=== PATIENT | female | born 1985 | race Caucasian/White ===

== ENCOUNTER 2019-02-26 08:30 | Inpatient (IN) | payer OTHER ==
[2019-02-26] MEDS ORDERED: Misoprostol 25 MCG (1/4 of 100 MCG) Tab ONE ×2 (19:22→23:22)
[2019-02-26] MEDS ORDERED: Ondansetron 4 MG/2 ML SDV IVPUSH PRN (19:45)
[2019-02-26] MEDS ORDERED: Misoprostol 100 MCG Tab VAG PRN (19:45)
[2019-02-26] MEDS ORDERED: Sodium Chloride 0.9% 10 ML Syringe FLUSH PRN (19:45)
[2019-02-26] MEDS ORDERED: Oxytocin/Lactated Ringers 10 UNIT/1,000 ML BAG IV SCH ×2 (19:45)
[2019-02-26] MEDS ORDERED: Nalbuphine 20 MG/ML 1 ML Syringe IVPUSH PRN (19:45)
--- NOTE | 2019-02-26 19:45 | PCM.LDHP ---
L&D History of Present Illness - General Date of Service: 02/26/19 Admit Problem/Dx: Admission Diagnosis/Problem Admission Diagnosis/Problem Source of Information: Patient History Limitations: Reports: No Limitations - History of Present Illness Introduction:: Patient is a 33 y/o at 40 2/7 wks who presents for IOL for dates. Doing well today. Has had some intermittent contractions, but nothing that is patterned or persists. No concerns for LOF. 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 (Approximate): Dermatologic History: Reports: Psoriasis - Past Surgical History HEENT Surgical History: Reports: KIRSTIEIK Social & Family History - Tobacco Use Smoking Status *Q: Never Smoker - Alcohol Use Alcohol Use History: No - Recreational Drug Use Recreational Drug Use: No H&P Review of Systems - Review of Systems: Review Of Systems: See Below General: Reports: No Symptoms Pulmonary: Reports: No Symptoms Cardiovascular: Reports: No Symptoms Gastrointestinal: Reports: No Symptoms Genitourinary: Reports: No Symptoms Musculoskeletal: Reports: No Symptoms Psychiatric: Reports: No Symptoms Neurological: Reports: No Symptoms L&D Exam - Exam Exam: See Below - OB Specific Contraction Intensity: Irritability Movement: Active Heart Tones: Present Heart Tones per Min: 125 Heart Rate (FHR) Variability: Moderate (6-25 bmp) Presentation: Vertex - Peres Score Peres Score Cervix Position: Posterior Peres Score Consistency: Soft Peres Score Effacement: 51-70% Peres Score Dilation: 1-2 cm Peres Score Infant's Station: -2 Peres Score Total: 6 - Exam General: Alert, Oriented, Cooperative Lungs: Clear to Auscultation, Normal Respiratory Effort Cardiovascular: Regular Rate, Regular Rhythm GI/Abdominal Exam: Soft, Non-Tender Genitourinary: Normal external exam Extremities: Normal Inspection Skin: Warm, Dry, Intact - Problem List (1) 40 weeks gestation of SNOMED Code(s): 48319918 ICD Code: Z3A.40 - 40 WEEKS GESTATION OF Status: Acute Current Visit: Yes (2) GBS (group B Streptococcus carrier), +RV culture, currently SNOMED Code(s): 0172692467383, 548275715, 3977231988014 ICD Code: O99.820 - STREPTOCOCCUS B CARRIER STATE COMPLICATING Status: Acute Current Visit: Yes Problem List Initiated/Reviewed/Updated: Yes Assessment/Plan Comment:: 33 y/o at 40 2/7 wks gestation who presents for IOL for dates * Labs on admission * GBS positive, will eventually start PCN when more active * Kamara bulb placed and Cytotec inserted. Eventually will switch to pitocin and AROM * Pain management per patient preference * Anticipate
[2019-02-27] MEDS: Lactated Ringers 1,000 ML IV SCH ×2 (00:38→05:47)
[2019-02-27] MEDS ORDERED: Penicillin G Potassium 5 MILLUNITS in Sodium Chloride 0.9% 100 ML IV ONE (03:00)
[2019-02-27] MEDS ORDERED: Penicillin G Potassium 2.5 MILLUNITS in Sodium Chloride 0.9% 100 ML IV SCH (07:00)
[2019-02-27] MEDS ORDERED: fentaNYL 100 MCG/2 ML SDV EPIDUR PRN (07:14)
[2019-02-27] MEDS ORDERED: fentaNYL/Bupivacaine-NS 2 MCG/ML-0.125%/PF 100 ML Bag EPIDUR PRN (07:14)
[2019-02-27] MEDS ORDERED: Ondansetron 4 MG/2 ML SDV IVPUSH PRN ×2 (07:14→08:47)
[2019-02-27] MEDS ORDERED: ePHEDrine 50 MG/ML SDV IVPUSH PRN ×3 (07:14→10:44)
[2019-02-27] MEDS ORDERED: Phenylephrine 1 MG in Sodium Chloride 0.9% 10 ML IV SCH ×2 (07:15→09:00)
--- NOTE | 2019-02-27 07:18 | PCM.PREANE ---
Preanesthetic Assessment - Anesthesia/Transfusion/Family Hx Anesthesia History: Prior Anesthesia Without Reaction Family History of Anesthesia Reaction: No Transfusion History: No Prior Transfusion(s) Intubation History: Unknown - Review of Systems General: No Symptoms Pulmonary: No Symptoms Cardiovascular: No Symptoms Gastrointestinal: No Symptoms Neurological: No Symptoms (History of arthritis and psoriasis) Other: Reports: None - Physical Assessment NPO Status Date: 02/26/19 NPO Status Time: 17:00 Pulse: 78 O2 Sat by Pulse Oximetry: 97 Respiratory Rate: 16 Blood Pressure: 126/76 Temperature: 37.2 C Vital Signs: Last Vital Signs Temp 37.2 C 02/26/19 19:45 Pulse 78 02/26/19 19:45 Resp 16 02/26/19 19:45 BP 126/76 02/26/19 19:45 Pulse Ox 97 02/26/19 19:45 Height: 1.68 m Weight: 94.801 kg ASA Class: 2 Mental Status: Alert & Oriented x3 Airway Class: Mallampati = 2 Dentition: Reports: Normal Dentition, Caries Thyro-Mental Finger Breadths: 3 Mouth Opening Finger Breadths: 3 ROM/Head Extension: Full Lungs: Clear to Auscultation, Normal Respiratory Effort Cardiovascular: Regular Rate, Regular Rhythm, No Murmurs - Lab Values: Laboratory Last Values WBC 14.39 K/mm3 (3.98-10.04) H 02/26/19 20:00 RBC 3.80 M/mm3 (3.98-5.22) L 02/26/19 20:00 Hgb 12.1 gm/L (11.2-15.7) 02/26/19 20:00 Hct 36.5 % (34.1-44.9) 02/26/19 20:00 MCV 96.1 fl (79.4-94.8) H 02/26/19 20:00 MCH 31.8 pg (25.6-32.2) 02/26/19 20:00 MCHC 33.2 g/dl (32.2-35.5) 02/26/19 20:00 RDW Std Deviation 49.3 fL (36.4-46.3) H 02/26/19 20:00 Plt Count 281 K/mm3 (182-369) 02/26/19 20:00 MPV 10.3 fl (9.4-12.3) 02/26/19 20:00 RPR Non-reactive (NONREACTIVE) 02/26/19 20:00 Blood Type O POSITIVE 02/26/19 20:00 Gel Antibody Screen Negative 02/26/19 20:00 Above labs reviewed and noted and within acceptable ranges to proceed with scheduled procedure. 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: Dermatologic History: Reports: Psoriasis - Past Surgical History HEENT Surgical History: Reports: LASIK - SUBSTANCE USE Smoking Status *Q: Never Smoker Tobacco Use Within Last Twelve Months: No Second Hand Smoke Exposure: No Recreational Drug Use History: No - CURRENT (IN HOUSE) MEDS Current Meds: Current Medications Ephedrine Sulfate (Ephedrine Sulfate) 5 mg IVPUSH ASDIRECTED PRN PRN Reason: Hypotension Fentanyl (Sublimaze) 100 mcg EPIDUR Q3H PRN PRN Reason: Pain Fentanyl/Bupivacaine HCl (Ahtgmgzc-Jsccp-Oh 2 Mcg/Ml-0.125%) 100 ml EPIDUR ASDIRECTED PRN PRN Reason: Pain Lactated Ringer's (Ringers, Lactated) 1,000 mls @ 40 mls/hr IV ASDIRECTED MAURY Last Admin: 02/27/19 05:47 Dose: 40 mls/hr Oxytocin/Lactated Ringer's (Pitocin In Lr 10 Units/1,000 Ml) 10 unit in 1,000 mls @ 12 mls/hr IV TITRATE MAURY; Protocol Oxytocin/Lactated Ringer's (Pitocin In Lr 10 Units/1,000 Ml) 10 unit in 1,000 mls @ 500 mls/hr IV .CONTINUOUS MAURY Penicillin G Potassium 2.5 (millunits/ Sodium Chloride) 100 mls @ 55 mls/hr IV Q4H MAURY Last Admin: 02/27/19 05:43 Dose: 55 mls/hr Phenylephrine HCl 1 mg/ Sodium (Chloride) 10.1 mls @ 1 mls/sec IV TITRATE MAURY; Protocol Misoprostol (Cytotec) 25 mcg VAG Q4H PRN PRN Reason: cervical ripening Nalbuphine HCl (Nubain) 10 mg IVPUSH Q2H PRN PRN Reason: pain Last Admin: 02/27/19 05:24 Dose: 10 mg Ondansetron HCl (Zofran) 4 mg IVPUSH Q4H PRN PRN Reason: Nausea/Vomiting Last Admin: 02/27/19 02:42 Dose: 4 mg Ondansetron HCl (Zofran) 4 mg IVPUSH ONETIME PRN PRN Reason: Nausea/Vomiting Sodium Chloride (Saline Flush) 10 ml FLUSH ASDIRECTED PRN PRN Reason: Keep Vein Open Discontinued Medications Penicillin G Potassium 5 (millunits/ Sodium Chloride) 100 mls @ 55 mls/hr IV ONETIME ONE Stop: 02/27/19 04:49 Last Admin: 02/27/19 01:45 Dose: 55 mls/hr Misoprostol (Cytotec) Confirm Administered Dose 25 mcg .ROUTE .STK-MED ONE Stop: 02/26/19 19:23 Last Admin: 02/26/19 21:08 Dose: 25 mcg Misoprostol (Cytotec) Confirm Administered Dose 25 mcg .ROUTE .STK-MED ONE Stop: 02/26/19 23:23 Last Admin: 02/26/19 23:44 Dose: Not Given
[2019-02-27] MEDS ORDERED: Lidocaine 1% 50 ML MDV INFILT ONE (07:29)
[2019-02-27] MEDS ORDERED: Morphine PF 10 MG/10 ML SDV ONE (08:19)
[2019-02-27] MEDS ORDERED: Ondansetron 4 MG/2 ML SDV ONE (08:33)
[2019-02-27] MEDS ORDERED: Oxytocin 10 Units/1 ML SDV ONE ×2 (08:33→08:52)
[2019-02-27] MEDS ORDERED: Lactated Ringers 2,000 ML ONE (08:33)
[2019-02-27] MEDS ORDERED: Ketorolac 30 MG/ML SDV ONE (08:33)
[2019-02-27] MEDS ORDERED: ceFAZolin 1 GM Vial ONE ×2 (08:33)
[2019-02-27] MEDS ORDERED: HYDROmorphone 0.5 MG/0.5 ML Syringe IVPUSH PRN (08:47)
[2019-02-27] MEDS ORDERED: diphenhydrAMINE 50 MG/ML SDV IVPUSH PRN ×2 (08:47→10:44)
[2019-02-27] MEDS ORDERED: fentaNYL 100 MCG/2 ML SDV IVPUSH PRN (08:47)
--- NOTE | 2019-02-27 09:17 | PCM.POSTAN ---
POST ANESTHESIA ASSESSMENT - MENTAL STATUS Mental Status: Alert - VITAL SIGNS Pulse Rate: 81 SaO2: 96 Resp Rate: 27 Blood Pressure: 102/67 Temperature: 36.7 C - RESPIRATORY Respiratory Status: Respiratory Rate WNL, Airway Patent, O2 Saturation Stable - CARDIOVASCULAR CV Status: Pulse Rate WNL, Blood Pressure Stable - GASTROINTESTINAL GI Status: No Symptoms - POST OP HYDRATION Hydration Status: Adequate & Stable
--- NOTE | 2019-02-27 09:20 | PCM.OPNOTE ---
- General Post-Op/Procedure Note Date of Surgery/Procedure: 02/27/19 Operative Procedure(s): Primary low transverse Findings: Baby Boy in a vertex presentation. Weight of 7 lbs 15 oz. APGARS of 9 & 9. Normal appearance of the uterus, fallopian tubes, and ovaries. Pre Op Diagnosis: 40 3/7 wks gestation. Non reassuring status Post-Op Diagnosis: Same Anesthesia Technique: Spinal Primary Surgeon: Tracey Sánchez Secondary Surgeon: Vi Harris Anesthesia Provider: April Velez Reason Medical Care Administrator Was Necessary: Speed, safety of procedure Pathology: Cord gas and cord blood collected. Placenta discarded Fluid Replacement, Intraop: 1,100 Output, Urine Amount: 100 EBL in mLs: 500 Complications: None Condition: Good Free Text/Narrative:: The risks, benefits, indications, potential complications, and alternatives were explained to the patient and informed consent obtained. After induction of anesthesia, the patient was placed in a supine position and then draped and prepped in the usual sterile manner. A Pfannenstiel incision was made and carried down through the subcutaneous tissue to the fascia. Fascial incision was made and extended transversely. The fascia was from the underlying rectus tissue superiorly and inferiorly. The peritoneum was identified and entered. Peritoneal incision was extended longitudinally. The utero-vesical peritoneal reflection was incised transversely and the bladder flap was bluntly freed from the lower uterine segment. A low transverse uterine incision was made sharply with a scalpel and extended bluntly in a cephalocaudad direction. A baby boy was delivered from a vertex presentation with APGARS as above. After the umbilical cord was clamped and cut a segment was obtained for a cord gas. Cord blood was then obtained for evaluation. The placenta was removed intact and appeared normal. The uterus was exteriorized and cleared of clots. The uterine outline, tubes and ovaries appeared normal. The uterine incision was closed with running locked sutures of 0 Vicryl. Hemostasis was obtained with a second imbricating layer of 0 vicryl. Slight oozing noted at right aspect of hysterotomy from abrasion of muscle. Curly seal placed along the incision with good result. The uterus was then placed back into the abdomen. The infracolic gutters were cleared of blood clots. The fascia was then reapproximated with running sutures of 0 Vicryl. The sucutaneous tissue was irrigated with sterile warm normal saline, hemostasis obtained with cautery. This layer was closed with a running 0 vicryl suture as well The skin was reapproximated with running Subcuticular 4-0 monocryl sutures. The incision was then sealed with Dermabond. Instrument, sponge, and needle counts were correct prior the abdominal closure and at the conclusion of the case.
[2019-02-27] MEDS ORDERED: Docusate Sodium 100 MG Cap PO PRN (10:44)
[2019-02-27] MEDS ORDERED: Lanolin 100% Cream 7 GM Tube TOP PRN (10:44)
[2019-02-27] MEDS ORDERED: Dextrose 5%-Lactated Ringers 1,000 ML IV SCH (10:44)
[2019-02-27] MEDS ORDERED: Ondansetron 4 MG/2 ML SDV IV PRN (10:44)
[2019-02-27] MEDS: Ketorolac 30 MG/ML SDV IVPUSH SCH ×2 (15:05→21:13)
[2019-02-27] MEDS: ceFAZolin 2 GM in Premix Bag 1 BAG IV SCH (16:48)
[2019-02-28] MEDS: ceFAZolin 2 GM in Premix Bag 1 BAG IV SCH ×2 (01:00→08:18)
[2019-02-28] MEDS: Ketorolac 30 MG/ML SDV IVPUSH SCH (03:34)
--- NOTE | 2019-02-28 07:18 | PCM.PNPP ---
- General Info Date of Service: 02/28/19 Functional Status: Reports: Pain Controlled, Tolerating Diet, Ambulating - Review of Systems General: Reports: No Symptoms Pulmonary: Reports: No Symptoms Cardiovascular: Reports: No Symptoms Gastrointestinal: Reports: Abdominal Pain (managed with medications ) Genitourinary: Reports: No Symptoms Musculoskeletal: Reports: No Symptoms - Patient Data Vital Signs - Most Recent: Last Vital Signs Temp 36.9 C 02/28/19 03:38 Pulse 84 02/28/19 06:00 Resp 15 02/28/19 06:00 BP 115/70 02/28/19 03:38 Pulse Ox 98 02/28/19 06:00 Weight - Most Recent: 94.801 kg I&O - Last 24 Hours: Intake & Output 02/27/19 02/28/19 02/28/19 22:59 06:59 14:59 Output Total 555 1000 Balance -555 -1000 Lab Results - Last 24 Hours: Laboratory Results - last 24 hr 02/28/19 Range/Units 05:40 WBC 16.56 H (3.98-10.04) K/mm3 RBC 3.10 L (3.98-5.22) M/mm3 Hgb 9.8 L D (11.2-15.7) gm/L Hct 30.7 L (34.1-44.9) % MCV 99.0 H (79.4-94.8) fl MCH 31.6 (25.6-32.2) pg MCHC 31.9 L (32.2-35.5) g/dl RDW Std Deviation 52.3 H (36.4-46.3) fL Plt Count 231 (182-369) K/mm3 MPV 10.6 (9.4-12.3) fl Med Orders - Current: Current Medications Diphenhydramine HCl (Benadryl) 25 mg IVPUSH Q6H PRN PRN Reason: Itching or Nausea Docusate Sodium (Colace) 100 mg PO Q12H PRN PRN Reason: Constipation Emollient Ointment (Lansinoh Hpa) 0 gm TOP ASDIRECTED PRN PRN Reason: Sore Nipples Ephedrine Sulfate (Ephedrine Sulfate) 5 mg IVPUSH SEECOMMENT PRN PRN Reason: Other Cefazolin Sodium/Dextrose 2 gm (/ Premix) 50 mls @ 100 mls/hr IV Q8H MAURY Last Admin: 02/28/19 01:00 Dose: 100 mls/hr Ibuprofen (Motrin) 600 mg PO Q6H PRN PRN Reason: mild pain or fever Ondansetron HCl (Zofran) 4 mg IV Q8H PRN PRN Reason: Nausea/Vomiting Oxycodone/Acetaminophen (Percocet 325-5 Mg) 2 tab PO Q4H PRN PRN Reason: Pain (moderate 4-6) Discontinued Medications Cefazolin Sodium (Ancef) Confirm Administered Dose 1 gm .ROUTE .STK-MED ONE Stop: 02/27/19 08:34 Cefazolin Sodium (Ancef) Confirm Administered Dose 1 gm .ROUTE .Hyperfair-MED ONE Stop: 02/27/19 08:34 Diphenhydramine HCl (Benadryl) 25 mg IVPUSH Q6H PRN PRN Reason: pruritis Ephedrine Sulfate (Ephedrine Sulfate) 5 mg IVPUSH ASDIRECTED PRN PRN Reason: Hypotension Ephedrine Sulfate (Ephedrine Sulfate) 5 mg IVPUSH ASDIRECTED PRN PRN Reason: Hypotension Fentanyl (Sublimaze) 100 mcg EPIDUR Q3H PRN PRN Reason: Pain Fentanyl (Sublimaze) 50 mcg IVPUSH Q5M PRN PRN Reason: Pain Fentanyl/Bupivacaine HCl (Egrvzczt-Mhgon-Tq 2 Mcg/Ml-0.125%) 100 ml EPIDUR ASDIRECTED PRN PRN Reason: Pain Hydromorphone HCl (Dilaudid) 0.5 mg IVPUSH Q15M PRN PRN Reason: Pain (severe 7-10) Lactated Ringer's (Ringers, Lactated) 1,000 mls @ 40 mls/hr IV ASDIRECTED MAURY Last Admin: 02/27/19 05:47 Dose: 40 mls/hr Oxytocin/Lactated Ringer's (Pitocin In Lr 10 Units/1,000 Ml) 10 unit in 1,000 mls @ 12 mls/hr IV TITRATE MAURY; Protocol Oxytocin/Lactated Ringer's (Pitocin In Lr 10 Units/1,000 Ml) 10 unit in 1,000 mls @ 500 mls/hr IV .CONTINUOUS MAURY Penicillin G Potassium 5 (millunits/ Sodium Chloride) 100 mls @ 55 mls/hr IV ONETIME ONE Stop: 02/27/19 04:49 Last Admin: 02/27/19 01:45 Dose: 55 mls/hr Penicillin G Potassium 2.5 (millunits/ Sodium Chloride) 100 mls @ 55 mls/hr IV Q4H MAURY Last Admin: 02/27/19 05:43 Dose: 55 mls/hr Phenylephrine HCl 1 mg/ Sodium (Chloride) 10.1 mls @ 1 mls/sec IV TITRATE MAURY; Protocol Lactated Ringer's (Ringers, Lactated) Confirm Administered Dose 2,000 mls @ as directed .ROUTE .STK-MED ONE Stop: 02/27/19 08:34 Phenylephrine HCl 1 mg/ Sodium (Chloride) 10.1 mls @ 1 mls/sec IV TITRATE MAURY; Protocol Dextrose/Lactated Ringer's (Dextrose 5%-Lactated Ringers) 1,000 mls @ 125 mls/ hr IV ASDIRECTED MAURY Stop: 02/27/19 18:43 Ketorolac Tromethamine (Toradol) Confirm Administered Dose 30 mg .ROUTE .STK- MED ONE Stop: 02/27/19 08:34 Ketorolac Tromethamine (Toradol) 30 mg IVPUSH Q6H MAURY Stop: 02/28/19 03:01 Last Admin: 02/28/19 03:34 Dose: 30 mg Lidocaine HCl (Xylocaine 1%) 20 ml INFILT ONETIME ONE Stop: 02/27/19 07:30 Misoprostol (Cytotec) Confirm Administered Dose 25 mcg .ROUTE .STK-MED ONE Stop: 02/26/19 19:23 Last Admin: 02/26/19 21:08 Dose: 25 mcg Misoprostol (Cytotec) 25 mcg VAG Q4H PRN PRN Reason: cervical ripening Misoprostol (Cytotec) Confirm Administered Dose 25 mcg .ROUTE .STK-MED ONE Stop: 02/26/19 23:23 Last Admin: 02/26/19 23:44 Dose: Not Given Morphine Sulfate (Duramorph Pf) Confirm Administered Dose 10 mg .ROUTE .STK-MED ONE Stop: 02/27/19 08:20 Nalbuphine HCl (Nubain) 10 mg IVPUSH Q2H PRN PRN Reason: pain Last Admin: 02/27/19 05:24 Dose: 10 mg Ondansetron HCl (Zofran) 4 mg IVPUSH Q4H PRN PRN Reason: Nausea/Vomiting Last Admin: 02/27/19 02:42 Dose: 4 mg Ondansetron HCl (Zofran) 4 mg IVPUSH ONETIME PRN PRN Reason: Nausea/Vomiting Ondansetron HCl (Zofran) Confirm Administered Dose 4 mg .ROUTE .STK-MED ONE Stop: 02/27/19 08:34 Ondansetron HCl (Zofran) 4 mg IVPUSH ONETIME PRN PRN Reason: Nausea/Vomiting Oxytocin (Pitocin) Confirm Administered Dose 10 unit .ROUTE .STK-MED ONE Stop: 02/27/19 08:34 Oxytocin (Pitocin) Confirm Administered Dose 10 unit .ROUTE .STK-MED ONE Stop: 02/27/19 08:53 Sodium Chloride (Saline Flush) 10 ml FLUSH ASDIRECTED PRN PRN Reason: Keep Vein Open - Infant Interaction Disposition, : in Room with Family Infant Interaction: Holding Infant Infant Feeding: Breastfed Infant; Nursed Well Support Person: - Recovery Exam Fundal Tone: Firm Fundal Level: 1 Fingerbreadths Below Umbilicus Fundal Placement: Midline Lochia Amount: Small, Moderate Lochia Color: Rubra/Red Perineum Description: Intact, Minimal Bruising/Swelling Urinary Elimination: Not Voiding - Exam General: Alert, Oriented, Cooperative Lungs: Clear to Auscultation, Normal Respiratory Effort Cardiovascular: Regular Rate, Regular Rhythm GI/Abdominal Exam: Soft, Tender (appropriate post op ) Extremities: Normal Inspection Skin: Warm, Dry, Intact Wound/Incisions: Healing Well, No Drainage - Problem List & Annotations (1) 40 weeks gestation of SNOMED Code(s): 43090369 Code(s): Z3A.40 - 40 WEEKS GESTATION OF Status: Acute Current Visit: Yes (2) GBS (group B Streptococcus carrier), +RV culture, currently SNOMED Code(s): 9556204768729, 392018624, 3513078295410 Code(s): O99.820 - STREPTOCOCCUS B CARRIER STATE COMPLICATING Status: Acute Current Visit: Yes (3) Non-reassuring status SNOMED Code(s): 488470771 Code(s): EAE9290 - Status: Acute Current Visit: Yes (4) S/P primary low transverse SNOMED Code(s): 177854009, 20861106, 604808899, 719417066, 511859280 Code(s): Z98.891 - HISTORY OF UTERINE SCAR FROM PREVIOUS SURGERY Status: Acute Current Visit: Yes - Problem List Review Problem List Initiated/Reviewed/Updated: Yes - My Orders Last 24 Hours: My Active Orders 02/27/19 10:44 Activity as Tolerated [RC] .Routine Antiembolic Devices [RC] PER UNIT ROUTINE Communication Order [RC] PER UNIT ROUTINE Communication Order [RC] PER UNIT ROUTINE Communication Order [RC] PER UNIT ROUTINE Intake and Output [RC] Q4H May Shower [RC] PER UNIT ROUTINE Notify Provider Intake and Out [RC] ASDIRECTED RT Incentive Spirometry [RC] Q2HWA Vital Signs [RC] Q1HR Acetaminophen/oxyCODONE [Percocet 325-5 MG] 2 tab PO Q4H PRN Docusate Sodium [Colace] 100 mg PO Q12H PRN Lanolin [Lansinoh HPA] See Dose Instructions TOP ASDIRECTED PRN Ondansetron [Zofran] 4 mg IV Q8H PRN diphenhydrAMINE [Benadryl] 25 mg IVPUSH Q6H PRN ePHEDrine [ePHEDrine sulfate] 5 mg IVPUSH SEECOMMENT PRN Assess Lochia [WOMSER] Per Unit Routine Assess Uterine Involution [WOMSER] Per Unit Routine Breast Pump [WOMSER] Per Unit Routine Peripheral IV Discontinue [OM.PC] Routine Sequential Compression Device [OM.PC] Per Unit Routine 02/27/19 16:30 ceFAZolin [Ancef] 2 gm Premix Bag 1 bag IV Q8H 02/27/19 Breakfast Regular Diet [DIET] 02/28/19 09:00 Ibuprofen [Motrin] 600 mg PO Q6H PRN 02/28/19 09:16 Urinary Catheter Removal [RC] Per Unit Routine - Assessment Assessment:: 33 y/o G1 now P1001 POD#1 from PLTCS for NRFS - Plan Plan:: S/p PLTCS * Routine cares * Hb today with appropriate drop from surgery * Encourage breast feeding * Discharge home in 1-2 days
--- NOTE | 2019-02-28 07:49 | PCM48HPAN ---
Post Anesthesia Note - EVALUATION WITHIN 48HRS OF ANESTHETIC Vital Signs in Normal Range: Yes Patient Participated in Evaluation: Yes Respiratory Function Stable: Yes Airway Patent: Yes Cardiovascular Function Stable: Yes Hydration Status Stable: Yes Pain Control Satisfactory: Yes Nausea and Vomiting Control Satisfactory: Yes Mental Status Recovered: Yes
[2019-02-28] MEDS ORDERED: Ibuprofen 600 MG Tab PO PRN (09:00)
[2019-02-28] MEDS: Acetaminophen/oxyCODONE 325-5 MG Tab PO PRN ×3 (09:35→20:58)
--- NOTE | 2019-02-28 10:44 | PCM.SN ---
- Free Text/Narrative Note: Late entry, 02/27/2019 - AM First called to L&D around 0145 due to concerns for a run of late decelerations. In to assess patient and by that time decelerations resolved. Overall status reassuring. Patient not requiring further augmentation. Was laboring on her own. 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 ARound 0630 there was a baseline shift in FHR down to 115 with some early like decelerations into the 90's and 100's. At 0745 further baseline shift down to 100. OR crew alerted to status and asked to set up for possible . Patient, however, complete around this time. Was allowed to push, but had decelerations into the 70'80's with pushing effort. Decision made to move into the OR for further pushing effort incase emergent delivery required. Once in OR patient did push for few more contractions and with good effort, but with decelerations at times into the 60's/70's. While patient was pushing well concern was that there was not enough time to allow for vaginal delivery. Decision made to proceed with c- section. See separate note
[2019-03-01] MEDS: Acetaminophen/oxyCODONE 325-5 MG Tab PO PRN (03:34)
--- NOTE | 2019-03-01 07:15 | PCM.PNPP ---
- General Info Date of Service: 03/01/19 Subjective Update: Desires to stay at least until later today. Functional Status: Reports: Pain Controlled - Review of Systems General: Reports: No Symptoms HEENT: Reports: No Symptoms Pulmonary: Reports: No Symptoms Cardiovascular: Reports: No Symptoms Gastrointestinal: Reports: No Symptoms Genitourinary: Reports: No Symptoms Musculoskeletal: Reports: No Symptoms Skin: Reports: No Symptoms Neurological: Reports: No Symptoms Psychiatric: Reports: No Symptoms - General Info Date of Service: 03/01/19 - Patient Data Vital Signs - Most Recent: Last Vital Signs Temp 36.4 C 03/01/19 03:37 Pulse 74 03/01/19 03:37 Resp 16 02/28/19 15:08 BP 110/72 03/01/19 03:37 Pulse Ox 95 03/01/19 03:37 Weight - Most Recent: 94.801 kg I&O - Last 24 Hours: Intake & Output 02/28/19 03/01/19 03/01/19 22:59 06:59 14:59 Output Total 450 Balance -450 Med Orders - Current: Current Medications Diphenhydramine HCl (Benadryl) 25 mg IVPUSH Q6H PRN PRN Reason: Itching or Nausea Docusate Sodium (Colace) 100 mg PO Q12H PRN PRN Reason: Constipation Emollient Ointment (Lansinoh Hpa) 0 gm TOP ASDIRECTED PRN PRN Reason: Sore Nipples Ephedrine Sulfate (Ephedrine Sulfate) 5 mg IVPUSH SEECOMMENT PRN PRN Reason: Other Ibuprofen (Motrin) 600 mg PO Q6H PRN PRN Reason: mild pain or fever Last Admin: 02/28/19 19:57 Dose: 600 mg Ondansetron HCl (Zofran) 4 mg IV Q8H PRN PRN Reason: Nausea/Vomiting Oxycodone/Acetaminophen (Percocet 325-5 Mg) 2 tab PO Q4H PRN PRN Reason: Pain (moderate 4-6) Last Admin: 03/01/19 03:34 Dose: 2 tab Discontinued Medications Cefazolin Sodium (Ancef) Confirm Administered Dose 1 gm .ROUTE .STK-MED ONE Stop: 02/27/19 08:34 Cefazolin Sodium (Ancef) Confirm Administered Dose 1 gm .ROUTE .STK-MED ONE Stop: 02/27/19 08:34 Diphenhydramine HCl (Benadryl) 25 mg IVPUSH Q6H PRN PRN Reason: pruritis Ephedrine Sulfate (Ephedrine Sulfate) 5 mg IVPUSH ASDIRECTED PRN PRN Reason: Hypotension Ephedrine Sulfate (Ephedrine Sulfate) 5 mg IVPUSH ASDIRECTED PRN PRN Reason: Hypotension Fentanyl (Sublimaze) 100 mcg EPIDUR Q3H PRN PRN Reason: Pain Fentanyl (Sublimaze) 50 mcg IVPUSH Q5M PRN PRN Reason: Pain Fentanyl/Bupivacaine HCl (Vktordvl-Qoalv-Kn 2 Mcg/Ml-0.125%) 100 ml EPIDUR ASDIRECTED PRN PRN Reason: Pain Hydromorphone HCl (Dilaudid) 0.5 mg IVPUSH Q15M PRN PRN Reason: Pain (severe 7-10) Lactated Ringer's (Ringers, Lactated) 1,000 mls @ 40 mls/hr IV ASDIRECTED [facility] Last Admin: 02/27/19 05:47 Dose: 40 mls/hr Oxytocin/Lactated Ringer's (Pitocin In Lr 10 Units/1,000 Ml) 10 unit in 1,000 mls @ 12 mls/hr IV TITRATE [facility]; Protocol Oxytocin/Lactated Ringer's (Pitocin In Lr 10 Units/1,000 Ml) 10 unit in 1,000 mls @ 500 mls/hr IV .CONTINUOUS [facility] Penicillin G Potassium 5 (millunits/ Sodium Chloride) 100 mls @ 55 mls/hr IV ONETIME ONE Stop: 02/27/19 04:49 Last Admin: 02/27/19 01:45 Dose: 55 mls/hr Penicillin G Potassium 2.5 (millunits/ Sodium Chloride) 100 mls @ 55 mls/hr IV Q4H [facility] Last Admin: 02/27/19 05:43 Dose: 55 mls/hr Phenylephrine HCl 1 mg/ Sodium (Chloride) 10.1 mls @ 1 mls/sec IV TITRATE [facility]Y; Protocol Lactated Ringer's (Ringers, Lactated) Confirm Administered Dose 2,000 mls @ as directed .ROUTE .[facility]-MED ONE Stop: 02/27/19 08:34 Phenylephrine HCl 1 mg/ Sodium (Chloride) 10.1 mls @ 1 mls/sec IV TITRATE [facility]Y; Protocol Cefazolin Sodium/Dextrose 2 gm (/ Premix) 50 mls @ 100 mls/hr IV Q8H [facility] Last Admin: 02/28/19 08:18 Dose: 100 mls/hr Dextrose/Lactated Ringer's (Dextrose 5%-Lactated Ringers) 1,000 mls @ 125 mls/ hr IV ASDIRECTED [facility] Stop: 02/27/19 18:43 Ketorolac Tromethamine (Toradol) Confirm Administered Dose 30 mg .ROUTE .STK- MED ONE Stop: 02/27/19 08:34 Ketorolac Tromethamine (Toradol) 30 mg IVPUSH Q6H [facility] Stop: 02/28/19 03:01 Last Admin: 02/28/19 03:34 Dose: 30 mg Lidocaine HCl (Xylocaine 1%) 20 ml INFILT ONETIME ONE Stop: 02/27/19 07:30 Misoprostol (Cytotec) Confirm Administered Dose 25 mcg .ROUTE .STK-MED ONE Stop: 02/26/19 19:23 Last Admin: 02/26/19 21:08 Dose: 25 mcg Misoprostol (Cytotec) 25 mcg VAG Q4H PRN PRN Reason: cervical ripening Misoprostol (Cytotec) Confirm Administered Dose 25 mcg .ROUTE .STK-MED ONE Stop: 02/26/19 23:23 Last Admin: 02/26/19 23:44 Dose: Not Given Morphine Sulfate (Duramorph Pf) Confirm Administered Dose 10 mg .ROUTE .STK-MED ONE Stop: 02/27/19 08:20 Nalbuphine HCl (Nubain) 10 mg IVPUSH Q2H PRN PRN Reason: pain Last Admin: 02/27/19 05:24 Dose: 10 mg Ondansetron HCl (Zofran) 4 mg IVPUSH Q4H PRN PRN Reason: Nausea/Vomiting Last Admin: 02/27/19 02:42 Dose: 4 mg Ondansetron HCl (Zofran) 4 mg IVPUSH ONETIME PRN PRN Reason: Nausea/Vomiting Ondansetron HCl (Zofran) Confirm Administered Dose 4 mg .ROUTE .STK-MED ONE Stop: 02/27/19 08:34 Ondansetron HCl (Zofran) 4 mg IVPUSH ONETIME PRN PRN Reason: Nausea/Vomiting Oxytocin (Pitocin) Confirm Administered Dose 10 unit .ROUTE .STK-MED ONE Stop: 02/27/19 08:34 Oxytocin (Pitocin) Confirm Administered Dose 10 unit .ROUTE .STK-MED ONE Stop: 02/27/19 08:53 Sodium Chloride (Saline Flush) 10 ml FLUSH ASDIRECTED PRN PRN Reason: Keep Vein Open - Interaction Disposition, : [place] in Room with Family Interaction: Holding Infant Feeding: Breastfed ; Nursed Well Support Person: - Recovery Exam Fundal Tone: Firm Fundal Level: 1 Fingerbreadths Below Umbilicus Fundal Placement: Midline Lochia Amount: Small Lochia Color: Rubra/Red Perineum Description: Intact, Minimal Bruising/Swelling Bladder Status: Voiding Urinary Elimination: Not Voiding - Exam General: Alert, Oriented HEENT: Pupils Equal Neck: Supple Lungs: Clear to Auscultation, Normal Respiratory Effort Cardiovascular: Regular Rate, Regular Rhythm GI/Abdominal Exam: Normal Bowel Sounds, Soft, Non-Tender, No Organomegaly, No Distention, No Abnormal Bruit, No Mass, Pelvis Stable Extremities: Normal Inspection, Normal Range of Motion, Non-Tender, No Pedal Edema, Normal Capillary Refill Skin: Warm, Dry, Intact Wound/Incisions: Healing Well Neurological: No New Focal Deficit Psy/Mental Status: Alert, Normal Affect, Normal Mood - Problem List Review Problem List Initiated/Reviewed/Updated: Yes - Assessment Assessment:: 33 y/o G1 now P1001 POD#2 from PLTCS for NRFS - Plan Plan:: S/p PLTCS * Routine cares * Hb today with appropriate drop from surgery * Encourage breast feeding * Discharge home in 1 days
--- NOTE | 2019-03-02 06:34 | PCM.DCSUM1 ---
Discharge Summary - Hospital Course Free Text/Narrative:: Doing great today. Initially thought would not desire discharge but does want to go home this afternoon. Diagnosis: Stroke: No - Discharge Data Discharge Date: 03/01/19 Discharge Disposition: Home, Self-Care 01 Condition: Good - Patient Summary/Data Operative Procedure(s) Performed: Primary low transverse Hospital Course: Primary for NRFHT. Did well with no issues or complications. - Patient Instructions Diet: Usual Diet as Tolerated Activity: No Strenuous Activities Driving: Do Not Drive Showering/Bathing: May Shower Wound/Incision Care: Keep Operative Site/Wound Site Clean and Dry Notify Provider of: Fever, Increased Pain, Swelling and Redness, Drainage, Nausea and/or Vomiting - Discharge Plan *PRESCRIPTION DRUG MONITORING PROGRAM REVIEWED*: No *COPY OF PRESCRIPTION DRUG MONITORING REPORT IN PATIENT HAN: No Patient Handouts: Delivery, Care After Referrals: Tracey Sánchez MD [Primary Care Provider] - - Discharge Summary/Plan Comment DC Time >30 min.: No - General Info Date of Service: 03/01/19 Functional Status: Reports: Pain Controlled. Denies: New Symptoms - Review of Systems General: Reports: No Symptoms HEENT: Reports: No Symptoms Pulmonary: Reports: No Symptoms Cardiovascular: Reports: No Symptoms Gastrointestinal: Reports: No Symptoms Genitourinary: Reports: No Symptoms Musculoskeletal: Reports: No Symptoms Skin: Reports: No Symptoms Neurological: Reports: No Symptoms Psychiatric: Reports: No Symptoms - Patient Data Vitals - Most Recent: Last Vital Signs Temp 37.1 C 03/01/19 09:00 Pulse 85 03/01/19 09:19 Resp 16 03/01/19 09:00 BP 120/81 03/01/19 09:19 Pulse Ox 98 03/01/19 09:19 Weight - Most Recent: 94.801 kg I&O - Last 24 hours: Intake & Output 03/01/19 03/01/19 03/02/19 14:59 22:59 06:59 Intake Total 0 Balance 0 Med Orders - Current: Current Medications Discontinued Medications Cefazolin Sodium (Ancef) Confirm Administered Dose 1 gm .ROUTE .STK-MED ONE Stop: 02/27/19 08:34 Cefazolin Sodium (Ancef) Confirm Administered Dose 1 gm .ROUTE .STK-MED ONE Stop: 02/27/19 08:34 Diphenhydramine HCl (Benadryl) 25 mg IVPUSH Q6H PRN PRN Reason: pruritis Diphenhydramine HCl (Benadryl) 25 mg IVPUSH Q6H PRN PRN Reason: Itching or Nausea Docusate Sodium (Colace) 100 mg PO Q12H PRN PRN Reason: Constipation Emollient Ointment (Lansinoh Hpa) 0 gm TOP ASDIRECTED PRN PRN Reason: Sore Nipples Ephedrine Sulfate (Ephedrine Sulfate) 5 mg IVPUSH ASDIRECTED PRN PRN Reason: Hypotension Ephedrine Sulfate (Ephedrine Sulfate) 5 mg IVPUSH ASDIRECTED PRN PRN Reason: Hypotension Ephedrine Sulfate (Ephedrine Sulfate) 5 mg IVPUSH SEECOMMENT PRN PRN Reason: Other Fentanyl (Sublimaze) 100 mcg EPIDUR Q3H PRN PRN Reason: Pain Fentanyl (Sublimaze) 50 mcg IVPUSH Q5M PRN PRN Reason: Pain Fentanyl/Bupivacaine HCl (Xaehkwqn-Pdluq-Eu 2 Mcg/Ml-0.125%) 100 ml EPIDUR ASDIRECTED PRN PRN Reason: Pain Hydromorphone HCl (Dilaudid) 0.5 mg IVPUSH Q15M PRN PRN Reason: Pain (severe 7-10) Lactated Ringer's (Ringers, Lactated) 1,000 mls @ 40 mls/hr IV ASDIRECTED [facility] Last Admin: 02/27/19 05:47 Dose: 40 mls/hr Oxytocin/Lactated Ringer's (Pitocin In Lr 10 Units/1,000 Ml) 10 unit in 1,000 mls @ 12 mls/hr IV TITRATE [facility]; Protocol Oxytocin/Lactated Ringer's (Pitocin In Lr 10 Units/1,000 Ml) 10 unit in 1,000 mls @ 500 mls/hr IV .CONTINUOUS [facility] Penicillin G Potassium 5 (millunits/ Sodium Chloride) 100 mls @ 55 mls/hr IV ONETIME ONE Stop: 02/27/19 04:49 Last Admin: 02/27/19 01:45 Dose: 55 mls/hr Penicillin G Potassium 2.5 (millunits/ Sodium Chloride) 100 mls @ 55 mls/hr IV Q4H [facility] Last Admin: 02/27/19 05:43 Dose: 55 mls/hr Phenylephrine HCl 1 mg/ Sodium (Chloride) 10.1 mls @ 1 mls/sec IV TITRATE [facility]; Protocol Lactated Ringer's (Ringers, Lactated) Confirm Administered Dose 2,000 mls @ as directed .ROUTE .STK-MED ONE Stop: 02/27/19 08:34 Phenylephrine HCl 1 mg/ Sodium (Chloride) 10.1 mls @ 1 mls/sec IV TITRATE [facility]; Protocol Cefazolin Sodium/Dextrose 2 gm (/ Premix) 50 mls @ 100 mls/hr IV Q8H [facility] Last Admin: 02/28/19 08:18 Dose: 100 mls/hr Dextrose/Lactated Ringer's (Dextrose 5%-Lactated Ringers) 1,000 mls @ 125 mls/ hr IV ASDIRECTED [facility] Stop: 02/27/19 18:43 Ibuprofen (Motrin) 600 mg PO Q6H PRN PRN Reason: mild pain or fever Last Admin: 02/28/19 19:57 Dose: 600 mg Ketorolac Tromethamine (Toradol) Confirm Administered Dose 30 mg .ROUTE .STK- MED ONE Stop: 02/27/19 08:34 Ketorolac Tromethamine (Toradol) 30 mg IVPUSH Q6H [facility] Stop: 02/28/19 03:01 Last Admin: 02/28/19 03:34 Dose: 30 mg Lidocaine HCl (Xylocaine 1%) 20 ml INFILT ONETIME ONE Stop: 02/27/19 07:30 Misoprostol (Cytotec) Confirm Administered Dose 25 mcg .ROUTE .STK-MED ONE Stop: 02/26/19 19:23 Last Admin: 02/26/19 21:08 Dose: 25 mcg Misoprostol (Cytotec) 25 mcg VAG Q4H PRN PRN Reason: cervical ripening Misoprostol (Cytotec) Confirm Administered Dose 25 mcg .ROUTE .STK-MED ONE Stop: 02/26/19 23:23 Last Admin: 02/26/19 23:44 Dose: Not Given Morphine Sulfate (Duramorph Pf) Confirm Administered Dose 10 mg .ROUTE .STK-MED ONE Stop: 02/27/19 08:20 Nalbuphine HCl (Nubain) 10 mg IVPUSH Q2H PRN PRN Reason: pain Last Admin: 02/27/19 05:24 Dose: 10 mg Ondansetron HCl (Zofran) 4 mg IVPUSH Q4H PRN PRN Reason: Nausea/Vomiting Last Admin: 02/27/19 02:42 Dose: 4 mg Ondansetron HCl (Zofran) 4 mg IVPUSH ONETIME PRN PRN Reason: Nausea/Vomiting Ondansetron HCl (Zofran) Confirm Administered Dose 4 mg .ROUTE .STK-MED ONE Stop: 02/27/19 08:34 Ondansetron HCl (Zofran) 4 mg IVPUSH ONETIME PRN PRN Reason: Nausea/Vomiting Ondansetron HCl (Zofran) 4 mg IV Q8H PRN PRN Reason: Nausea/Vomiting Oxycodone/Acetaminophen (Percocet 325-5 Mg) 2 tab PO Q4H PRN PRN Reason: Pain (moderate 4-6) Last Admin: 03/01/19 03:34 Dose: 2 tab Oxytocin (Pitocin) Confirm Administered Dose 10 unit .ROUTE .STK-MED ONE Stop: 02/27/19 08:34 Oxytocin (Pitocin) Confirm Administered Dose 10 unit .ROUTE .STK-MED ONE Stop: 02/27/19 08:53 Sodium Chloride (Saline Flush) 10 ml FLUSH ASDIRECTED PRN PRN Reason: Keep Vein Open
== END 2019-03-01 12:00 | disposition home or self-care (01) | DRG 788 ==
LOC: JD.OB 08:30 → OBSVTOIN 02-27 08:30 → JD.OB 02-27 08:31
PROVIDERS: ADMIT Obstetrics & Gynecology; ATTEND Obstetrics & Gynecology
PROC: 0U7C7ZZ Dilation of Cervix, Via Natural or Artificial Opening (ICD-10-PCS; principal; 2019-02-27)
PROC: 3E0P7VZ Introduction of Hormone into Female Reproductive, Via Natural or Artificial Opening (ICD-10-PCS; principal; 2019-02-27)
PROC: 10D00Z1 Extraction of Products of Conception, Low, Open Approach (ICD-10-PCS; principal; 2019-02-27)
PROC: 6A550ZT Pheresis of Cord Blood Stem Cells, Single (ICD-10-PCS; principal; 2019-02-27)
DX: O48.0 Post-term pregnancy (principal); Z3A.40 40 weeks gestation of pregnancy; O99.824 Streptococcus B carrier state complicating childbirth; O76 Abnormality in fetal heart rate and rhythm complicating labor and delivery; Z37.0 Single live birth
CPT/HCPCS: 01961; 36415; 59025; 85027; 86592; 86850; 86900; 86901; 94762; A9270-GY; J0690; J1885; J2270; J2300; J2405; J2540; J2590; J7030; J7120

== ENCOUNTER 2020-09-18 04:38 | Inpatient (IN) | payer BC ==
[2020-09-18] MEDS ORDERED: Lactated Ringers 1,000 ML IV SCH (05:15)
[2020-09-18] MEDS ORDERED: Sodium Chloride 0.9% 10 ML Syringe FLUSH PRN (05:15)
[2020-09-18] MEDS ORDERED: Nalbuphine 10 MG/1 ML Vial IVPUSH PRN (05:15)
[2020-09-18] MEDS ORDERED: Ondansetron 4 MG/2 ML SDV IVPUSH PRN (05:15)
[2020-09-18] MEDS ORDERED: Oxytocin/Lactated Ringers 10 UNIT/1,000 ML BAG IV SCH ×2 (05:15→11:15)
[2020-09-18] MEDS ORDERED: Ampicillin 2 GM in Sodium Chloride 0.9% 100 ML IV ONE (05:15)
--- NOTE | 2020-09-18 08:19 | PCM.LDHP ---
L&D History of Present Illness - General Date of Service: 09/18/20 Admit Problem/Dx: Patient Status Order with Admit Dx/Problem 09/18/20 04:52 Patient Status [ADT] Routine Admission Diagnosis/Problem Admission Diagnosis/Problem - History of Present Illness Introduction:: 35 year old at 40w1 here in labor. PNC with Dr Sánchez complicated by GBS and prior here in labor. 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: Musculoskeletal History: Reports: Other (See Below) Other Musculoskeletal History: Psoriatic arthritis, joint laxity Neurological History: Reports: None Psychiatric History: Reports: None Endocrine/Metabolic History: Reports: None Other Hematologic History: Elevated Sed rate (hx) Immunologic History: Reports: None Oncologic (Cancer) History: Reports: None Dermatologic History: Reports: Psoriasis - Infectious Disease History Infectious Disease History: Reports: None - Past Surgical History Head Surgeries/Procedures: Reports: None HEENT Surgical History: Reports: Eye Surgery, LASIK Cardiovascular Surgical History: Reports: None Respiratory Surgical History: Reports: None GI Surgical History: Reports: None Female Surgical History: Reports: Section, Other (See Below) Other Female Surgeries/Procedures: hx colposcopy, cervical dysplasia Endocrine Surgical History: Reports: None Neurological Surgical History: Reports: None Musculoskeletal Surgical History: Reports: Other (See Below) Other Musculoskeletal Surgeries/Procedures:: dactylitis of finger Oncologic Surgical History: Reports: None Dermatological Surgical History: Reports: None Social & Family History - Family History Family Medical History: No Pertinent Family History - Tobacco Use Tobacco Use Status *Q: Never Tobacco User Second Hand Smoke Exposure: No - Caffeine Use Caffeine Use: Reports: Coffee - Recreational Drug Use Recreational Drug Use: No H&P Review of Systems - Review of Systems: Review Of Systems: See Below General: Reports: No Symptoms HEENT: Reports: No Symptoms Pulmonary: Reports: No Symptoms Cardiovascular: Reports: No Symptoms Gastrointestinal: Reports: No Symptoms Genitourinary: Reports: No Symptoms Musculoskeletal: Reports: No Symptoms Skin: Reports: No Symptoms Psychiatric: Reports: No Symptoms Neurological: Reports: No Symptoms Hematologic/Lymphatic: Reports: No Symptoms Immunologic: Reports: No Symptoms L&D Exam - Exam Exam: See Below - Vital Signs Vital Signs: Last Vital Signs Temp 37.1 C 09/18/20 05:15 Pulse 103 H 09/18/20 05:15 Resp 14 09/18/20 05:15 BP 129/79 09/18/20 05:15 Pulse Ox 98 09/18/20 05:15 Weight: 97.976 kg - OB Specific Contraction Intensity: Moderate to Strong Movement: Active Heart Tones: Present Heart Rate (FHR) Variability: Moderate (6-25 bmp) Presentation: Vertex - Peres Score Peres Score Cervix Position: Midposition Peres Score Consistency: Soft Peres Score Effacement: 51-70% Peres Score Dilation: > 5 cm Peres Score 's Station: -2 Peres Score Total: 9 - Exam General: Alert, Oriented HEENT: PERRLA, Conjunctiva Clear, EACs Clear, EOMI, Hearing Intact, Mucosa Moist & [place], Nares Patent, Normal Nasal Septum, Posterior Pharynx Clear, TMs Clear Neck: Supple, Trachea Midline Lungs: Clear to Auscultation, Normal Respiratory Effort Cardiovascular: Regular Rate, Regular Rhythm GI/Abdominal Exam: Normal Bowel Sounds, Soft, Non-Tender, No Organomegaly, No Distention, No Abnormal Bruit, No Mass, Pelvis Stable Rectal Exam: Normal Exam Back Exam: Normal Inspection, Full Range of Motion Extremities: Normal Inspection, Normal Range of Motion, Non-Tender, No Pedal Edema, Normal Capillary Refill Skin: Warm, Dry, Intact Neurological: Cranial Nerves Intact, Reflexes Equal Bilateral Psychiatric: Alert, Normal Affect, Normal Mood - Patient Data Lab Results Last 24 hrs: Laboratory Results - last 24 hr 09/18/20 09/18/20 Range/Units 05:20 05:28 WBC 16.74 H (3.98-10.04) K/mm3 RBC 3.73 L (3.98-5.22) M/mm3 Hgb 11.4 D (11.2-15.7) gm/dl Hct 34.4 (34.1-44.9) % MCV 92.2 D (79.4-94.8) fl MCH 30.6 (25.6-32.2) pg MCHC 33.1 (32.2-35.5) g/dl RDW Std Deviation 54.5 H (36.4-46.3) fL Plt Count 255 (182-369) K/mm3 MPV 10.0 (9.4-12.3) fl Neut % (Auto) 88.1 H (34.0-71.1) % Lymph % (Auto) 7.0 L (19.3-51.7) % Dare % (Auto) 4.7 (4.7-12.5) % Eos % (Auto) 0.1 L (0.7-5.8) Baso % (Auto) 0.1 (0.1-1.2) % Neut # (Auto) 14.74 H (1.56-6.13) K/mm3 Lymph # (Auto) 1.18 (1.18-3.74) K/mm3 Dare # (Auto) 0.78 H (0.24-0.36) K/mm3 Eos # (Auto) 0.02 L (0.04-0.36) K/mm3 Baso # (Auto) 0.02 (0.01-0.08) K/mm3 Manual Slide Review Abnormal smear SARS-CoV-2 RNA (TEA) Negative (NEGATIVE) Result Diagrams: 09/18/20 05:28 Problem List Initiated/Reviewed/Updated: Yes Orders Last 24hrs: Active Orders 24 hr Category Date Time Status Patient Status [ADT] Routine ADT 09/18/20 04:52 Active Activity as Tolerated [RC] PFP Care 09/18/20 05:15 Active Communication Order [RC] ASDIRECTED Care 09/18/20 05:15 Active Heart Tones [RC] ASDIRECTED Care 09/18/20 05:16 Active Non Stress Test [RC] PER UNIT ROUTINE Care 09/18/20 04:52 Active Notify Provider [RC] PFP Care 09/18/20 05:15 Active Notify Provider [RC] PRN Care 09/18/20 05:15 Active Peripheral IV Care [RC] Q2HR Care 09/18/20 05:16 Active Vital Signs [RC] PER UNIT ROUTINE Care 09/18/20 04:52 Active Vital Signs [RC] PER UNIT ROUTINE Care 09/18/20 05:15 Active Regular Diet [DIET] Diet 09/18/20 Breakfast Active RAPID PLASMA REAGIN,RPR [CHEM] Routine Lab 09/18/20 05:28 Received Ampicillin 1 gm Med 09/18/20 09:30 Active Sodium Chloride 0.9% [Normal Saline] 100 ml IV Q4H Lactated Ringers [Ringers, Lactated] 1,000 ml Med 09/18/20 05:15 Active IV ASDIRECTED Nalbuphine [Nubain] Med 09/18/20 05:15 Active 10 mg IVPUSH Q2H PRN Ondansetron [Zofran] Med 09/18/20 05:15 Active 4 mg IVPUSH Q4H PRN Oxytocin/Lactated Ringers [Pitocin in LR 10 Units/1,000 Med 09/18/20 05:15 Active ML] 10 unit in 1,000 ml IV .CONTINUOUS Sodium Chloride 0.9% [Saline Flush] Med 09/18/20 05:15 Active 10 ml FLUSH ASDIRECTED PRN Electronic Heart Tones Ext w TOCO [WOMSER] Oth 09/18/20 05:15 Ordered Routine Electronic Heart Tones Internal [WOMSER] Per Unit Oth 09/18/20 05:15 Ordered Routine Peripheral IV Insertion Adult [OM.PC] Routine Oth 09/18/20 05:15 Ordered Resuscitation Status Routine Resus Stat 09/18/20 04:52 Ordered Medication Orders Lactated Ringer's (Ringers, Lactated) 1,000 mls @ 100 mls/hr IV ASDIRECTED [facility] Last Infusion: 09/18/20 06:15 Dose: 0 mls/hr Documented by: Admin: 09/18/20 05:40 Dose: 100 mls/hr Documented by: SIGIFREDO Ampicillin Sodium 1 gm/ Sodium (Chloride) 100 mls @ 200 mls/hr IV Q4H [facility] Oxytocin/Lactated Ringer's (Pitocin In Lr 10 Units/1,000 Ml) 10 unit in 1,000 mls @ 500 mls/hr IV .CONTINUOUS [facility] Nalbuphine HCl (Nubain) 10 mg IVPUSH Q2H PRN PRN Reason: Pain Last Admin: 09/18/20 07:41 Dose: 10 mg Documented by: [email or web address] Ondansetron HCl (Zofran) 4 mg IVPUSH Q4H PRN PRN Reason: Nausea/Vomiting Sodium Chloride (Saline Flush) 10 ml FLUSH ASDIRECTED PRN PRN Reason: Keep Vein Open Assessment/Plan Comment:: 35 year old here in labor. TOLAC. RBA reviewed. Antibiotics for GBS.
[2020-09-18] MEDS: Ampicillin 1 GM in Sodium Chloride 0.9% 100 ML IV SCH ×3 (09:37→22:01)
[2020-09-18] MEDS: Lidocaine 1% 50 ML MDV ONE ×2 (16:59→18:08)
--- NOTE | 2020-09-18 17:12 | PCM.SN.2 ---
- Free Text/Narrative Note: Stage I - Patient presented in labor. Progressed to 7 cm. AROM clear fluid. Progressed to compete with overall reassuring heart tones. Stage II - of viable male 9#5oz, 8/9 APGARS at 1622. Head delivered in controlled manner over intact perineum, tight nuchal cord, body and shoulders followed without difficulty. To maternal abdomen. Positive cry. Cord blood collected. Stage III - of intact placenta. 3vc. 3rd degree laceration repaired with 3-0 vicryl. EBL 300.
[2020-09-18] MEDS ORDERED: Benzocaine/Menthol 20%-0.5% Spray 56 GM Canister TOP PRN (17:42)
[2020-09-18] MEDS ORDERED: Acetaminophen 325 MG Tab PO PRN (17:42)
[2020-09-18] MEDS ORDERED: Witch Hazel Medicated Pads 40/Jar TOP PRN (17:42)
[2020-09-18] MEDS ORDERED: Magnesium Hydroxide 400 MG/5 ML Susp 30 ML Cup PO PRN (17:42)
[2020-09-18] MEDS ORDERED: Ibuprofen 600 MG Tab PO PRN (17:42)
[2020-09-18] MEDS ORDERED: Hydrocortisone Acetate 25 MG Supp RECTAL PRN (17:42)
[2020-09-18] MEDS ORDERED: Lidocaine 1% 20 ML MDV INJECT ONE (17:52)
[2020-09-18] MEDS: Docusate Sodium 100 MG Cap PO PRN (18:28)
[2020-09-19] MEDS: Docusate Sodium 100 MG Cap PO PRN (07:00)
--- NOTE | 2020-09-19 08:30 | PCM.DCSUM1 ---
Discharge Summary - Hospital Course Free Text/Narrative:: 35 year old s/p . Doing great. Diagnosis: Stroke: No - Discharge Data Discharge Date: 09/19/20 Discharge Disposition: Home, Self-Care 01 Condition: Good - Referral to Home Health Primary Care Physician: Tracey Sánchez MD - Patient Summary/Data Hospital Course: Uncomplicated labor, delivery and course - Patient Instructions Diet: Usual Diet as Tolerated Activity: No Strenuous Activities Driving: May Drive Today Showering/Bathing: May Shower Notify Provider of: Fever, Increased Pain, Swelling and Redness, Drainage, Nausea and/or Vomiting - Discharge Plan *PRESCRIPTION DRUG MONITORING PROGRAM REVIEWED*: No *COPY OF PRESCRIPTION DRUG MONITORING REPORT IN PATIENT HAN: No Home Medications: Home Meds No122/Iron/Folic Acid [ Multi Tablet] 1 each PO DAILY 09/16/20 [History] Referrals: Tracey Sánchez MD [Primary Care Provider] - (2 weeks) - Discharge Summary/Plan Comment DC Time >30 min.: No - General Info Date of Service: 09/19/20 Functional Status: Reports: Pain Controlled - Review of Systems General: Reports: No Symptoms HEENT: Reports: No Symptoms Pulmonary: Reports: No Symptoms Cardiovascular: Reports: No Symptoms Gastrointestinal: Reports: No Symptoms Genitourinary: Reports: No Symptoms Musculoskeletal: Reports: No Symptoms Skin: Reports: No Symptoms Neurological: Reports: No Symptoms Psychiatric: Reports: No Symptoms - Patient Data Vitals - Most Recent: Last Vital Signs Temp 36.9 C 09/19/20 04:01 Pulse 95 09/19/20 04:01 Resp 16 09/19/20 04:01 BP 114/66 09/19/20 04:01 Pulse Ox 97 09/19/20 04:01 Weight - Most Recent: 97.976 kg I&O - Last 24 hours: Intake & Output 09/18/20 09/19/20 09/19/20 22:59 06:59 14:59 Intake Total 2200 Balance 2200 Med Orders - Current: Current Medications Acetaminophen (Tylenol) 650 mg PO Q4H PRN PRN Reason: mild pain or fever Benzocaine/Menthol (Dermoplast Pain Relief [place]) 0 gm TOP ASDIRECTED PRN PRN Reason: Perineal Comfort Measure Last Admin: 09/18/20 18:29 Dose: 1 can Documented by: Docusate Sodium (Colace) 100 mg PO BID PRN PRN Reason: Constipation Last Admin: 09/19/20 07:00 Dose: 100 mg Documented by: Hydrocortisone Acetate (Anucort-Hc) 25 mg RECTAL BID PRN PRN Reason: Hemorrhoid pain Ibuprofen (Motrin) 600 mg PO Q6H PRN PRN Reason: Mild pain or fever Last Admin: 09/18/20 18:28 Dose: 600 mg Documented by: Magnesium Hydroxide (Milk Of Magnesia) 30 ml PO BEDTIME PRN PRN Reason: Constipation Witch Jen (Tucks) 1 pad TOP ASDIRECTED PRN PRN Reason: Pain Last Admin: 09/18/20 18:28 Dose: 1 tub Documented by: Discontinued Medications Lactated Ringer's (Ringers, Lactated) 1,000 mls @ 100 mls/hr IV ASDIRECTED MAURY Last Infusion: 09/18/20 06:15 Dose: 0 mls/hr Documented by: Ampicillin Sodium 2 gm/ Sodium (Chloride) 100 mls @ 200 mls/hr IV ONETIME ONE Stop: 09/18/20 05:44 Last Admin: 09/18/20 05:41 Dose: 200 mls/hr Documented by: Ampicillin Sodium 1 gm/ Sodium (Chloride) 100 mls @ 200 mls/hr IV Q4H MAURY Last Admin: 09/18/20 22:01 Dose: Not Given Documented by: Oxytocin/Lactated Ringer's (Pitocin In Lr 10 Units/1,000 Ml) 10 unit in 1,000 mls @ 500 mls/hr IV .CONTINUOUS MAURY Oxytocin/Lactated Ringer's (Pitocin In Lr 10 Units/1,000 Ml) 10 unit in 1,000 mls @ 12 mls/hr IV TITRATE MAURY; Protocol Last Titration: 09/18/20 16:23 Dose: 83.33 munits/min, 500 mls/hr Documented by: Lidocaine HCl (Xylocaine 1%) Confirm Administered Dose 50 ml .ROUTE .STK-MED ONE Stop: 09/18/20 16:26 Last Admin: 09/18/20 18:08 Dose: Not Given Documented by: Lidocaine HCl (Xylocaine 1%) 50 ml INJECT ONETIME ONE Stop: 09/18/20 17:53 Last Admin: 11/28/20 18:29 Dose: Not Given Documented by: Nalbuphine HCl (Nubain) 10 mg IVPUSH Q2H PRN PRN Reason: Pain Last Admin: 09/18/20 07:41 Dose: 10 mg Documented by: Ondansetron HCl (Zofran) 4 mg IVPUSH Q4H PRN PRN Reason: Nausea/Vomiting Sodium Chloride (Saline Flush) 10 ml FLUSH ASDIRECTED PRN PRN Reason: Keep Vein Open - Exam General: Reports: Alert, Oriented HEENT: Reports: Pupils Equal, Pupils Reactive, EOMI, Mucous Membr. Moist/[place]ck: Reports: Supple Lungs: Reports: Clear to Auscultation, Normal Respiratory Effort Cardiovascular: Reports: Regular Rate, Regular Rhythm GI/Abdominal Exam: Normal Bowel Sounds, Soft, Non-Tender, No Organomegaly, No Distention, No Abnormal Bruit, No Mass, Pelvis Stable Rectal (Female) Exam: Normal Exam, Normal Rectal Tone Back Exam: Reports: Normal Inspection, Full Range of Motion Extremities: Normal Inspection, Normal Range of Motion, Non-Tender, No Pedal Edema, Normal Capillary Refill Skin: Reports: Warm, Dry, Intact Wound/Incisions: Reports: Healing Well Neurological: Reports: No New Focal Deficit Psy/Mental Status: Reports: Alert, Normal Affect, Normal Mood
== END 2020-09-19 17:20 | disposition home or self-care (01) | DRG 540 ==
LOC: JD.OBCHECK 04:38 → JD.OB 04:38 → JD.OBCHECK 08:23 → OBSVTOIN 16:22 → JD.OB 16:23
PROVIDERS: ADMIT Obstetrics & Gynecology; ATTEND Obstetrics & Gynecology
PROC: 10D00Z1 Extraction of Products of Conception, Low, Open Approach (ICD-10-PCS; principal; 2020-09-18)
PROC: 0DQR0ZZ Repair Anal Sphincter, Open Approach (ICD-10-PCS; 2020-09-18)
DX: O48.0 Post-term pregnancy (principal); Z3A.40 40 weeks gestation of pregnancy; Z37.0 Single live birth; O34.211 Maternal care for low transverse scar from previous cesarean delivery; O99.824 Streptococcus B carrier state complicating childbirth; O69.1XX0 Labor and delivery complicated by cord around neck, with compression, not applicable or unspecified; O70.20 Third degree perineal laceration during delivery, unspecified; Z20.828 Contact with and (suspected) exposure to other viral communicable diseases
CPT/HCPCS: 36415; 59025; 59409; 85025; 86592; A9270-GY; J0290; J2001; J2300; J2590; J7050; J7120; U0002

== ENCOUNTER 2022-03-15 06:31 | Inpatient (IN) | payer BC ==
[2022-03-15] MEDS ORDERED: Nalbuphine HCl 10 MG/ 1ML Amp IVPUSH PRN (19:14)
[2022-03-15] MEDS ORDERED: Ondansetron 4 MG/2 ML SDV IVPUSH PRN (19:14)
[2022-03-15] MEDS ORDERED: Acetaminophen 325 MG Tab PO PRN (19:14)
[2022-03-15] MEDS ORDERED: Calcium Carbonate 500 MG Tab.Chew PO PRN (19:14)
[2022-03-15] MEDS ORDERED: Sodium Chloride 0.9% 10 ML Syringe FLUSH PRN (19:14)
[2022-03-15] MEDS ORDERED: Oxytocin/Lactated Ringers 10 UNIT/1,000 ML BAG IV SCH ×2 (19:15→19:30)
[2022-03-15] MEDS ORDERED: Ampicillin 2 GM in Sodium Chloride 0.9% 100 ML IV ONE (19:30)
[2022-03-15] MEDS ORDERED: Oxytocin 10 Units/1 ML SDV ONE (19:54)
[2022-03-15] MEDS: Lactated Ringers 1,000 ML IV SCH ×2 (20:36→22:49)
[2022-03-15] MEDS ORDERED: Sodium Chloride 0.9% 10 ML Syringe FLUSH SCH (21:00)
[2022-03-15] MEDS: Ampicillin 1 GM in Sodium Chloride 0.9% 100 ML IV SCH (23:31)
[2022-03-16] MEDS: Ampicillin 1 GM in Sodium Chloride 0.9% 100 ML IV SCH (03:26)
[2022-03-16] MEDS ORDERED: diphenhydrAMINE 50 MG/ML SDV IVPUSH PRN (04:35)
[2022-03-16] MEDS ORDERED: ePHEDrine 50 MG/ML SDV IVPUSH PRN (04:35)
[2022-03-16] MEDS ORDERED: fentaNYL 100 MCG/2 ML SDV EPIDUR PRN (04:35)
[2022-03-16] MEDS ORDERED: Bupivacaine/fentaNYL/NS 100 ML Bag EPIDUR PRN (04:35)
[2022-03-16] MEDS ORDERED: fentaNYL 100 MCG/2 ML SDV ONE (04:48)
[2022-03-16] MEDS ORDERED: Ibuprofen 600 MG Tab PO PRN (07:04)
[2022-03-16] MEDS ORDERED: Witch Hazel Medicated Pads 40/Jar TOP PRN (07:04)
[2022-03-16] MEDS ORDERED: Benzocaine/Menthol 20%-0.5% Spray 78 GM Cannister TOP PRN (07:04)
[2022-03-16] MEDS ORDERED: Acetaminophen 325 MG Tab PO PRN (07:04)
[2022-03-16] MEDS ORDERED: Methylergonovine 0.2 MG/1 ML Amp ONE (09:57)
[2022-03-16] MEDS: Docusate Sodium 100 MG Cap PO PRN (17:35)
[2022-03-17] MEDS: Docusate Sodium 100 MG Cap PO PRN (09:01)
== END 2022-03-17 09:07 | disposition home or self-care (01) | DRG 560 ==
LOC: JD.OB 06:31 → OBSVTOIN 03-16 06:31 → JD.OB 03-16 06:32
PROVIDERS: ADMIT Obstetrics & Gynecology; ATTEND Obstetrics & Gynecology
PROC: 10E0XZZ Delivery of Products of Conception, External Approach (ICD-10-PCS; principal; 2022-03-16)
PROC: 3E033VJ Introduction of Other Hormone into Peripheral Vein, Percutaneous Approach (ICD-10-PCS; 2022-03-16)
PROC: 0KQM0ZZ Repair Perineum Muscle, Open Approach (ICD-10-PCS; 2022-03-16)
PROC: 3E0R3BZ Introduction of Anesthetic Agent into Spinal Canal, Percutaneous Approach (ICD-10-PCS; 2022-03-16)
PROC: 10907ZC Drainage of Amniotic Fluid, Therapeutic from Products of Conception, Via Natural or Artificial Opening (ICD-10-PCS; 2022-03-16)
DX: O48.0 Post-term pregnancy (principal); Z3A.41 41 weeks gestation of pregnancy; O99.824 Streptococcus B carrier state complicating childbirth; Z37.0 Single live birth; O70.1 Second degree perineal laceration during delivery; O69.81X0 Labor and delivery complicated by cord around neck, without compression, not applicable or unspecified
CPT/HCPCS: 36415; 51701; 59025; 59409; 85027; 86592; 86850; 86900; 86901; A9270-GY; J0290; J2210; J2300; J2590; J3010; J7120